=== PATIENT | male | born 1980 | race Two or more races ===

== ENCOUNTER → 2023-05-05 09:10 | Emergency (ER) | payer OTHER ==
[~2023-05-05] VITALS: Ht 180.3 cm; Wt 104.5 kg
[~2023-05-05 09:10] MED LIST: HYDROmorphone HCL 2 MG/ML VL/or syr IV ONE; HYDROmorphone HCL 2 MG/ML VL/or syr ONE; ONDANSETRON HCL 4 MG/2 ML VIAL IV ONE; ONDANSETRON HCL 4 MG/2 ML VIAL ONE
[2023-05-05 09:45] VITALS: BP 149/106
== END | disposition home or self-care (01) ==
LOC: ER 09:10 → EDBD 09:10 → ER 09:21
DX: S98.921A Partial traumatic amputation of right foot, level unspecified, initial encounter (principal); W18.09XA Striking against other object with subsequent fall, initial encounter; Y93.89 Activity, other specified; Y92.89 Other specified places as the place of occurrence of the external cause; Y99.8 Other external cause status
CPT/HCPCS: 96374; 96375; 99284; J1170; J2405